=== PATIENT | male | born 1980 | race Caucasian/White ===

== ENCOUNTER 2019-03-01 08:47 | Emergency (ER) | payer BC ==
[~2019-03-01] VITALS: Ht 172.7 cm; Wt 131.5 kg
[2019-03-01 08:47] VITALS: BP_SYST 209
--- NOTE | 2019-03-01 08:47 | NUR ---
BROUGHT BACK TO BED #8 AND TRIAGED. REPORT GIVEN TO NIGEL
--- NOTE | 2019-03-01 08:53 | NUR ---
Patient is awake, alert, and oriented x4. Patient is complaining of SOB and chest pain [id number]. He woke up today feeling anxious and took a calming medication he had never taken before, it made his anxiety worse.
--- NOTE | 2019-03-01 08:54 | NUR ---
ER Dr. Hassan at bedside examining patient.
[2019-03-01] MEDS ORDERED: KETOROLAC TROMETHAMINE 30 MG VIAL IVP ONE (09:00)
[2019-03-01] MEDS ORDERED: NACL 0.9% 1,000 ML IV ONE (09:00)
[2019-03-01] MEDS ORDERED: ONDANSETRON HCL 4 MG/2 ML VIAL IVP ONE (09:00)
[2019-03-01 10:55] VITALS: BP_SYST 120
== END 2019-03-01 10:55 | disposition home or self-care (01) ==
LOC: SED 08:47
DX: F41.0 Panic disorder [episodic paroxysmal anxiety] (principal); I10 Essential (primary) hypertension; Z90.5 Acquired absence of kidney
CPT/HCPCS: 71045; 96374; 96375; 99283; J1885; J2405; J7030

== ENCOUNTER 2019-06-03 20:24 | Emergency (ER) | payer BC ==
[~2019-06-03] VITALS: Ht 172.7 cm; Wt 127.0 kg
[2019-06-03 20:30] VITALS: BP_SYST 160
--- NOTE | 2019-06-03 20:35 | NUR ---
Patient triaged and placed in waiting room. VSS and patient appears in no acute distress at this time. Accompanied by self, awaiting available bed, and MD notified of need for MSE.
--- NOTE | 2019-06-03 20:50 | NUR ---
Per mail clerk, pt LWBS.
== END 2019-06-03 20:30 | disposition left against medical advice (07) ==
LOC: SED 20:24
DX: R07.89 Other chest pain (principal); R06.00 Dyspnea, unspecified; Z53.21 Procedure and treatment not carried out due to patient leaving prior to being seen by health care provider
CPT/HCPCS: 93005

== ENCOUNTER 2019-06-06 16:59 | Emergency (ER) | payer BC ==
[~2019-06-06] VITALS: Ht 172.7 cm; Wt 127.0 kg
[2019-06-06 17:18] VITALS: BP_SYST 208
[2019-06-06] MEDS ORDERED: LORazepam 1 MG TABLET PO ONE (18:30)
[2019-06-06] MEDS ORDERED: ASPIRIN 81 MG TAB.CHEW PO ONE (18:30)
[2019-06-06 18:40] LABS: BASOPHILS # (AUTO) 0.1 K/uL (0.0-0.2); BASOPHILS % (AUTO) 1.3 % (0.0-2.0); EOSINOPHILS # (AUTO) 0.2 K/uL (0.0-0.4); HEMATOCRIT 42.7 % (36-54); HEMOGLOBIN 14.6 g/dL (14.0-18.0); LYMPHOCYTES # (AUTO) 1.6 K/uL (1.0-5.5); LYMPHOCYTES % (AUTO) 26.7 % (20.5-51.5); MEAN CORPUSCULAR HEMOGLOBIN 30 pg (27-31); MEAN CORPUSCULAR HGB CONC 34 % (32-36); MEAN CORPUSCULAR VOLUME 88 fL (79.0-98.0); MONOCYTES # (AUTO) 0.7 K/uL (0.0-1.0); MONOCYTES % (AUTO) 11.2 % (1.7-9.3); NEUTROPHILS # (AUTO) 3.4 K/uL (1.8-7.7); NEUTROPHILS % (AUTO) 57.8 % (40.0-70.0); PLATELET COUNT (AUTO) 185 K/uL (130-430); RED BLOOD CELL COUNT(AUTO) 4.86 MIL/uL (4.2-6.2); RED CELL DISTRIBUTION WIDTH 13.2 % (9.0-15.0); WHITE BLOOD COUNT (AUTO) 5.9 K/uL (4.8-10.8)
[2019-06-06 18:55] LABS: CALCIUM 8.3 mg/dL (8.4-11.0); CREATININE 1.05 mg/dL (0.55-1.30); POTASSIUM 3.4 mmol/L (3.5-5.1)
[2019-06-06 19:02] LABS: ALBUMIN 3.8 g/dL (3.4-4.8); TOTAL BILIRUBIN 0.5 mg/dL (0.0-1.0)
[2019-06-06 20:06] VITALS: BP_SYST 135
== END 2019-06-06 20:06 | disposition home or self-care (01) ==
LOC: SED 16:59
DX: R07.2 Precordial pain (principal); R06.02 Shortness of breath; I10 Essential (primary) hypertension
CPT/HCPCS: 36415; 80053; 82550-TC; 84484; 85025; 93005; 99284